=== PATIENT | female | born 1940 | race Two or more races ===

== ENCOUNTER 2024-08-24 12:19 | Emergency (ER) | payer OTHER ==
[~2024-08-24] VITALS: Ht 152.4 cm; Wt 59.0 kg
[2024-08-24] MEDS ORDERED: FLUOXETINE HCL60 MG (13:14)
[2024-08-24] MEDS ORDERED: DOXAZOSIN MESYLA4 MG PO (13:15)
[2024-08-24] MEDS ORDERED: AMLODIPINE-OLM1 EAC2 (13:15)
[2024-08-24] MEDS ORDERED: ROSUVASTATIN CA10 MG PO (13:15)
[2024-08-24] MEDS ORDERED: TRAMADOL HCL 50 MG TABLET PO ONE (13:30)
[2024-08-24 13:56] LABS: HEMATOCRIT 37.1 % (36.0-45.00); HEMOGLOBIN 11.6 g/dL (12.0-15.00); MEAN CORPUSCULAR HEMOGLOBIN 24.3 pg (27.00-32.0); MEAN CORPUSCULAR HGB CONC 31.2 g/dl (32.0-36.0); PLATELET COUNT 192 K/uL (150-450); RED BLOOD COUNT 4.76 M/uL (4.00-6.00); RED CELL DISTRIBUTION WIDTH 20.4 % (11.5-14.5)
[2024-08-24] MEDS ORDERED: ACETAMINOPHEN 500 MG GEL..CAP PO ONE (14:13)
[2024-08-24 14:20] LABS: COVID-19 AG NEGATIVE (NEGATIVE); INFLUENZA A AG NEGATIVE (NEGATIVE)
[2024-08-24 14:41] LABS: ALBUMIN 3.5 gm/dL (3.4-5.0); BILIRUBIN TOTAL 0.33 mg/dL (0.3-1.2); CALCIUM 9.7 mg/dL (8.5-10.1); CREATININE SERUM 0.67 mg/dL (0.55-1.02); GFR 84.26; GLOBULINA 3.2 G/DL (2.4-3.5); POTASSIUM 3.91 mEq/L (3.5-5.1); TOTAL PROTEIN 6.7 gm/dL (6.4-8.2)
[2024-08-24 14:52] LABS: PARTIAL THROMBOPLASTIN TIME 24.8 SECONDS (22.0-34.0); PROTHROMBIN TIME 10.9 SECONDS (9.0-11.5)
== END 2024-08-24 16:59 | disposition home or self-care (01) ==
LOC: ER 12:19
PROVIDERS: General Practice
DX: B34.9 Viral infection, unspecified (principal); Z20.822 Contact with and (suspected) exposure to COVID-19; I10 Essential (primary) hypertension; Z86.73 Personal history of transient ischemic attack (TIA), and cerebral infarction without residual deficits; Z88.6 Allergy status to analgesic agent; Z88.8 Allergy status to other drugs, medicaments and biological substances